=== PATIENT | male | born 1990 | race Caucasian/White ===

== ENCOUNTER 2021-07-23 13:18 | Observation (INO) | payer OTHER, SELFPAY ==
[2021-07-23] VITALS (17 sets, daily range): BP systolic 72–117; BP diastolic 20–78; PULSE 77–103; RESP 16–21; TEMP 36.4–37.1; O2SAT 97–100
--- NOTE | ~2021-07-23 | CT_ITS ---
EXAMINATION: CT abdomen pelvis w con DATE: 07/23/2021 16:16 INDICATION: Abdominal pain. Nausea. Vomiting. TECHNIQUE: Computed tomography (CT) of the abdomen and pelvis was performed with 100 mL Omnipaque 350 intravenous contrast. Automated exposure control and iterative reconstruction technique were employe d. The dose-length product was 611.89 mGy-cm. COMPARISON: CT abdomen 07/15/2006 FINDINGS: The visualized portions of the lung bases demonstrate mild atelectasis. There are surgical clips adjacent to the gastroesophageal junction. No pleural effusion. The heart size is normal. No pe ricardial effusion. The liver, gallbladder, spleen, pancreas, adrenal glands, and right kidney are no rmal. There is a 5 mm cyst in left kidney. There are no dilated loops of bowel. The appendix is lanre l. There are plugs from bilateral inguinal hernia repairs. There are no pathologically enlarged lymph nodes. There is no free intraperitoneal fluid. There is mild thoracolumbar spondylosis. IMPRESSION: 1. No etiology for the patient's symptoms. Reviewed, dictated and finalized at location B. [employer]
--- NOTE | ~2021-07-23 | XR_ITS ---
EXAMINATION: XR chest 1V portable 07/23/2021 15:46 INDICATION: Syncope. Nausea, vomiting and diarrhea. PROCEDURE: AP portable chest COMPARISON: Comparison to multiple prior studies sequentially, with oldest reviewed study dated 08/02. FINDINGS: The lungs are clear. The cardiomediastinal silhouette is within normal limits. There are no pleural effusions. There is no pneumothorax suspected. IMPRESSION: 1: NO ACUTE CARDIOPULMONARY DISEASE. Reviewed, dictated and finalized at location A. LEAD
--- NOTE | ~2021-07-23 | CT_ITS ---
EXAMINATION: CT cervical spine wo con DATE: 07/23/2021 16:15 INDICATION: Syncope TECHNIQUE: Computed tomography (CT) of the cervical spine was performed without intravenous contrast. Automated exposure control and iterative reconstruction technique were employed. The dose-length pro duct was 557.43 mGy-cm. COMPARISON: None FINDINGS: Alignment is normal. Vertebral body and disc heights are normal. No fracture. There is minimal to mil d uncovertebral and facet osteoarthritis at a few levels but which does not result in neural foramina l stenosis. The central canal also appears widely patent. Cervical soft tissues are unremarkable. Vis ualized portions of the airway and bilateral upper lungs are clear. IMPRESSION: 1. Minimal to mild cervical facet and uncovertebral osteoarthritis. No acute osseous abnormality. Reviewed, dictated and finalized at location A. [employer] IMPRESSION: 1. Minimal to mild cervical facet and uncovertebral osteoarthritis. No acute os seous abnormality.
--- NOTE | ~2021-07-23 | CT_ITS ---
EXAMINATION: CT brain wo con DATE: 07/23/2021 16:15 INDICATION: Syncope TECHNIQUE: Computed tomography (CT) of the head was performed without intravenous contrast. Sagittal and coronal reconstructions were performed. The mA was adjusted according to patient size. Iterative reconstruction technique was employed. The dose-length product was 605.33 mGy-cm. COMPARISON: Brain MR dated 07/08/2008 FINDINGS: No acute intracranial hemorrhage, acute infarction or abnormal extra axial fluid collection. Ventricl es are normal and symmetric with normal variant cavum septum vergae. No mass/mass effect. The orbits, paranasal sinuses and mastoid air cells are normal. IMPRESSION: 1. Normal head CT. No acute intracranial process. Reviewed, dictated and finalized at location A. ENT ACCOUNT REPRESENTATIVE
--- NOTE | 2021-07-23 13:48 | ECG_ITS ---
Measurements Intervals [place] Rate: 76 P: 18 MA: 161 QRS: -3 QRSD: 85 T: 14 QT: 337 QTc: 381 Interpretive Statements SINUS RHYTHM NORMAL ECG Electronically Signed On 07-23-2021 15:11:05 HELP DESK ENGINEER by Pasquale Valentine D.O.
[2021-07-23] MEDS: SODIUM CHLORIDE 0.9% IV 1,000 ML 999 ML IV CONT ×3 (13:53→18:56)
[2021-07-23 15:02] LABS: Hematocrit 52.7 % (42.0-52.0); Mean Corpuscular HGB Conc 34.2 g/dl (32-36); Mean Corpuscular Hemoglobin 32.4 pg (26-34); Mean Corpuscular Volume 94.8 fl (80-100); Mean Platelet Volume 11.9 fl (7.4-10.4); Platelet Count Result 221 k/mm3 (150-375); Red Blood Count 5.56 M/mm3 (4.6-6.20); Red Cell Distribution Width 12.1 % (11.5-14.5); White Blood Count 15.1 K/mm3 (4.5-10.0)
[2021-07-23 15:25] LABS: Band Neutrophils Percent 19 % (0-6); Lymphocytes Absolute Manual 0.45 K/mm3 (1.1-4.5); Monocytes Absolute Manual 1.35 K/mm3 (0.1-0.90); Monocytes Percent Manual 9 % (3-9); Neutrophils Absolute Manual 13.28 K/mm3 (1.3-6.7); Neutrophils Percent Manual 69 % (46-73); Total Cells Counted 100
[2021-07-23 15:26] LABS: Platelet Estimate Adequate (Adequate)
--- NOTE | 2021-07-23 15:38 | PC.NURSE ---
PA aware of orthostatic results. Guaiac completed and showed to PA. Pt had diarrhea in bedside commode.
[2021-07-23 15:46] LABS: Alanine Aminotransferase 41 U/L (4-50); Alkaline Phosphatase 76 U/L (38-126); Anion Gap 10 mmol/L (8-16); Aspartate Amino Transferase 35 U/L (17-59); Bilirubin,Total 0.8 mg/dL (0.2-1.3); Blood Urea Nitrogen 17 mg/dL (9-20); Calcium 9.9 mg/dL (8.4-10.2); Carbon Dioxide 26 mmol/L (22-30); Chloride 105 mmol/L (98-107); Estimated CRCL calculation 69 ml/min; Estimated Glomerular Filt Rate 51; Glucose 115 mg/dL (65-110); Potassium 4.8 mmol/L (3.4-5.0); Sodium 141 mmol/L (137-145)
[2021-07-23] MEDS: metroNIDAZOLE 500 MG/ISO 100ML 500 MG/100 ML BAG 100 MG IVPB (15:46)
[2021-07-23 15:56] LABS: Add Urine Microscopic? YES; Appearance Urine Cloudy (Clear); Bacteria Urine Trace /hpf; Bilirubin Urine Negative (Negative); Blood Urine Negative (Negative); Color Urine Amber (Yellow); Glucose Urine UA Negative (Negative); Ketones Urine Negative (Negative); Leukocyte Esterase Ur Negative LEU/UL (Negative); Mucus Urine Few /lpf; Nitrate Urine Negative (Negative); Protein Urine 2+ mg/dL (Negative); RBC Urine 0-2 /hpf (0-2); Specific Grav Ur 1.018 (1.001-1.035); Squamous Epithelial Cell Urine Rare /hpf (Few); Urobilinogen Urine Negative mg/dL (<2.0); WBC Urine 0-3 /hpf
[2021-07-23 16:15] LABS: Amphetamine Screen Urine Negative (Negative); Barbiturate Screen Urine Negative (Negative); Benzodiazepines Screen Urine Negative (Negative); Cannabinoid Screen Urine Positive (Negative); Cocaine Screen Urine Negative (Negative); Methadone Screen Urine Negative (Negative); Opiate Screen Urine Negative (Negative); Phencyclidine Screen Urine Negative (Negative)
--- NOTE | 2021-07-23 17:46 | PC.NURSE ---
clarified with Diara. Pt to receive 3 total liters of fluid. Additional order added.
[2021-07-23] MEDS: PANTOPRAZOLE SODIUM IV 40 MG VIAL IV PUSH (18:56)
--- NOTE | 2021-07-23 19:37 | ED.GENADULT ---
HPI - General Adult General Chief complaint: Syncope Stated complaint: syncope x 2, vomiting Time Seen by Provider: 07/23/21 13:32 Source: patient Mode of arrival: EMS Limitations: no limitations History of Present Illness HPI narrative: Patient is a 30-year-old male presenting with chief complaint of syncopal episode while in the bathroom prior to arrival. Patient reports that he has intermittent episodes of diarrhea which at times leads to dehydration and he has had a syncopal episode in the past due to this 1 other time. Patient reports that he has had bouts with intermittent diarrhea for multiple years. Patient reports that he has had a colonoscopy performed a few months ago in [facility] and it was normal. He states that they evaluated him to see if he had ulcerative colitis like his father but he did not. Patient reports that he has a standing stool culture ordered but when he has these bouts of diarrhea however they have not resulted abnormally in the past. Patient denies any chest pain, shortness of breath. He reports generally he only has diarrhea but this time he also had accompanying vomiting. Patient reports that he had a syncopal episode when he was trying to stand and ambulate. Patient reports that he felt very weak. Patient mother reports that she was there and the patient struck the right side of his forehead. Mother reports that he was patient so she did not know if he had a seizure. Patient reports he does not have a seizure history. She denies tonic-clonic motions. Patient denies noting any blood or mucus in his stools. He denies any stools being black or tarry. Related Data Home Medications Medication Instructions Recorded Confirmed No Home Medications 07/23/21 07/23/21 Allergies Allergy/AdvReac Type Severity Reaction Status Date / Time Penicillins Allergy Unknown Rash Verified 07/23/21 13:45 Review of Systems Review of Systems: CONSTITUTIONAL: Denies fever, chills, or sweats. EYES: Denies visual changes, redness, or discharge. ENT: Denies rhinorrhea, congestion, sore throat, or otalgia. CARDIOVASCULAR: Denies chest pain, palpitations, or edema. RESPIRATORY: Denies cough or dyspnea. GASTROINTESTINAL: Reports vomiting and diarrhea denies abdominal pain, nausea GENITOURINARY: Denies dysuria or hematuria. SKIN: Denies rash or itching. MUSCULOSKELETAL: Denies back pain, joint pain, or myalgia. NEUROLOGIC: Reports syncope denies headache, numbness, dizziness, or weakness. PSYCHIATRIC: Denies anxiety or depression. [facility] Family History Family History (Updated 04/28/14 @ 07:13 by DOCTOR UNKNOWN) Mother Asthma Other Diabetes mellitus Family history of allergic disorder Family history of cardiovascular disease Hypertension Social History Social History Smoking status: Never smoker Alcohol intake: never Exam Narrative: GENERAL: Appears pale, appears to feel ill. HEAD: Normocephalic, atraumatic. EYES: PERRLA and EOMI. NECK: Supple. No adenopathy or masses. No carotid bruits or JVD CHEST: Clear to auscultation. No respiratory distress. No wheezes rales or rhonchi HEART: Regular rate and rhythm. No murmur heard. Normal peripheral pulses. ABDOMEN: Soft, diffuse tenderness, nondistended, normal active bowel sounds. Rectal exam without abnormal findings. Hemoccult positive. EXTREMITIES: Normal range of motion. No edema. SKIN: Warm, dry, no rash. NEURO: No focal deficits. Alert and oriented x3. PSYCH: Normal mood and affect. Course Vital Signs Vital signs: Vital Signs Pulse Rate 85 07/23/21 13:30 Respiratory Rate 19 07/23/21 13:30 Blood Pressure 87/61 L 07/23/21 13:30 Temperature 97.6 F 07/23/21 13:32 Pulse Rate 92 07/23/21 19:03 Respiratory Rate 20 07/23/21 19:03 Blood Pressure 117/58 L 07/23/21 19:03 Pulse Oximetry 97 07/23/21 19:03 Medical Decision Making [facility] Narrative Medical decision making narrative: Patient has receive
[2021-07-23] MEDS: SODIUM CHLORIDE 0.9% IV 1,000 ML 125 ML IV CONT (19:58)
--- NOTE | 2021-07-23 19:59 | PC.NURSE ---
stool sample sent to the lab did not have enough. they are going to do send what they can and we will need to send more of the specimen.
[2021-07-23 20:31] LABS: IFOB Positive Control Positive; Immunochemical Fecal Occult Bl Positive (N)
--- NOTE | 2021-07-23 21:02 | PM.IMHP ---
H&P: HPI History of Present Illness Date/Time: 07/23/21 21:02 Chief Complaint: Syncope Narrative: Patient is a 30-year-old male who presents to the ED with 6 few syncopal episodes earlier today. He states he was doing okay he yesterday when he woke up he was feeling little dizzy and when he went to the bathroom he had explosive diarrhea. He started taking some Gatorade and more fluids however he was still feeling lousy and also had a vomiting episode earlier today. He reports he had a couple of of blackout episodes at home and hence called an ambulance and was brought in here. EMS noted him to be hypotensive and was given fluids. In the ER he was positive for orthostasis. He reports diffuse abdominal pain in periumbilical area. Is feeling better since he has received IV fluids from the ER. He has had multiple bouts of intermittent diarrhea for many years. He reports since he had Chauncey fundoplication done this has been recurrent. 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 He has cut down on his dairy intake which has in fact help some. No fever chills no urinary complaints. Review of Systems Review of Systems: - CONSTITUTIONAL: Denies weight loss, fever and chills. - HEENT: Denies changes in vision and hearing - RESPIRATORY: Denies SOB and cough. - CV: Denies palpitations and CP. - GI: Reports abdominal pain, nausea, vomiting and diarrhea. - : Denies dysuria and urinary frequency. - MSK: Denies myalgia and joint pain. - SKIN: Denies rash and pruritus. - NEUROLOGICAL: Denies headache and syncope. - PSYCHIATRIC: Denies recent changes in mood. Denies anxiety and depression. All systems reviewed & are unremarkable except as noted in HPI and below Constitutional: Constitutional: Reports fatigue and Reports weakness Neurologic: Reports weakness Endocrine: Endocrine: Reports fatigue [facility] Family History Family History (Updated 04/28/14 @ 07:13 by DOCTOR UNKNOWN) Mother Asthma Other Diabetes mellitus Family history of allergic disorder Family history of cardiovascular disease Hypertension Social History Social History Smoking status: Never smoker Alcohol intake: never Meds Home Medications and Allergies Home Medications Medication Instructions Recorded Confirmed Type No Home Medications 07/23/21 07/23/21 History Allergies Allergy/AdvReac Type Severity Reaction Status Date / Time Penicillins Allergy Unknown Rash Verified 07/23/21 13:45 Vital Signs Vital Signs - 24 hr 07/23/21 13:30 07/23/21 13:32 07/23/21 13:45 Temperature 97.6 F Pulse Rate 85 88 83 Respiratory Rate 19 20 18 Blood Pressure 87/61 L 87/61 L 94/56 L Pulse Oximetry 100 99 07/23/21 13:46 07/23/21 15:00 07/23/21 15:16 Temperature Pulse Rate 77 88 87 Respiratory Rate 18 Blood Pressure 101/78 101/58 L Pulse Oximetry 100 07/23/21 15:20 07/23/21 15:21 07/23/21 15:22 Temperature Pulse Rate 84 99 103 H Respiratory Rate Blood Pressure 104/53 L 92/56 L 72/20 L Pulse Oximetry 07/23/21 17:29 07/23/21 17:30 07/23/21 19:03 Temperature Pulse Rate 103 H 92 92 Respiratory Rate 21 H 16 20 Blood Pressure 111/57 L 112/53 L 117/58 L Pulse Oximetry 100 100 97 07/23/21 20:31 07/23/21 20:32 07/23/21 20:33 Temperature 98.8 F Pulse Rate 95 Respiratory Rate 16 Blood Pressure 111/52 L 112/50 L 104/59 L Pulse Oximetry 100 07/23/21 20:37 Temperature 98.8 F Pulse Rate 95 Respiratory Rate 16 Blood Pressure 111/52 L Pulse Oximetry 100 Exam Narrative: GENERAL: Appears comfortable not in acute distress HEAD: Normocephalic, atraumatic. EYES: PERRLA and EOMI. NECK: Supple. No adenopathy or masses. No carotid bruits or JVD CHEST: Clear to auscultation. No respiratory distress. No wheezes rales or rhonchi HEART: Regular rate and rhythm. No murmur heard. Normal peripheral pul
--- NOTE | 2021-07-23 21:19 | ADMGEN ---
This patient, Mathew Lisa, was admitted to 2 Medical Room 249-01. Patient/family oriented to hospital policies and general routines including ID bracelet, bed and alarms, visiting hours, pain management, procedures, bathroom and other care routines, personal items, smoking policy, room service/diet, and visiting hours. Information on how to activate the Rapid Response Team has been discussed. Patient/Family are encouraged to report perceived risks to care and to ask questions if they do not understand what they are told or what they should do.
[2021-07-24] VITALS (8 sets, daily range): BP systolic 112–126; BP diastolic 56–67; PULSE 69–85; RESP 16–20; TEMP 36.4–37; O2SAT 98–100; BMI 27.3
[2021-07-24] MEDS: SODIUM CHLORIDE 0.9% IV 1,000 ML 125 ML IV CONT ×3 (00:30→16:18)
[2021-07-24] MEDS: PANTOPRAZOLE SODIUM IV 40 MG VIAL IV PUSH ×2 (08:13→20:26)
--- NOTE | 2021-07-24 11:57 | WPDGICN ---
Assessment and Plan Assessment and plan (1) Diarrhea: Qualifiers: Diarrhea type: unspecified type Qualified Code(s): R19.7 - Diarrhea, unspecified Code(s): R19.7 - Diarrhea, unspecified Status: Acute Assessment and Plan: patient says that has been having recurrent episodes of diarrhea since hiatal hernia surgery that was complicated with massive bleeding. last few times had to be hydrated in ER, this time with syncope and orthostasis from diarrhea he had recent colonoscopy and already establish with GI, stool sample pending but probably not infectious (C diff negative) will get serology for celiac disease, inflammatory markers also will start amitriptyline to see if will minimize episodes after dehydration is treated, will need follow-up with his GI doctor. I talked to mother and mentioned that if he does not get better probably can be a good idea to have GI evaluation in [facility] like [facility] or even [facility]. (2) Dehydration: Code(s): E86.0 - Dehydration Status: Acute Assessment and Plan: will start questran daily (also advised to try it whenever he has episodes of diarrhea to see if will help) (3) Syncope due to orthostatic hypotension: Code(s): I95.1 - Orthostatic hypotension Status: Acute Assessment and Plan: resolved (4) KELSIE (acute kidney injury): Code(s): N17.9 - Acute kidney failure, unspecified Status: Acute Assessment and Plan: treated, labs in am (5) Occult blood positive stool: Code(s): R19.5 - Other fecal abnormalities Status: Acute Assessment and Plan: non-significant, had recent colonoscopy probably from several episodes of diarrhea (6) History of Chauncey fundoplication: Code(s): Z98.890 - Other specified postprocedural states Status: Acute Assessment and Plan: years ago with complication- wonder if had anything to do with recurrent symptoms GI Consult Note Consult date/time: 07/24/21 11:57 Reason for consult: diarrhea, dehydration with syncope HPI: Mathew Lisa is a 30 year old male that in 2011 was found to have esophagitis with hiatal hernia, finally repaired by laparoscopic [place] [address] Hunt but was complicated with massive mediastinal bleeding that required several blood transfusion in the OR- the source of the bleeding was 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 Patient had uneventful recovery but since he has been dealing with intermittent diarrhea, initially episodes every month and lately more sporadic however last two times he had to be in the ER because dehydration. He notices that will start with burping and chlorine taste then followed by diarrhea. He has seen GI in [place] and had colonoscopy just few months that apparently was unremarkable. This time he came with several episodes of loose stools, lightheadedness and two times passing out briefly. Denies blood in stools or fever, no sick contacts. Blood work in ER consistent with dehydration and hemoconcentration (wbc 15, hb 18, creatinine 1.6) U tox + marijuana. He is feeling better with IV fluids. Mother is at bedside and says that is affecting his life, [place] the [place] and can't tell when episodes will occur. He tried imodium without help. Review of Systems Constitutional: Constitutional: Denies chills Eyes: Eyes: Reports no additional eye complaints ENT: Reports Normal hearing present Cardiovascular: Cardiovascular: Denies chest pain Respiratory: Respiratory: Denies dyspnea Gastrointestinal: Gastrointestinal: Reports diarrhea Genitourinary: Genitourinary: Denies dysuria Musculoskeletal: Musculoskeletal: Denies neck pain Integumentary/Breasts: Skin/Breast: Denies dry skin Neurologic: Comments: syncope Psychiatric: Psychiatric: Reports no additional psychiatric complaints [facility] Surgical History Surgical History (Updated 07/24/21 @ 1
[2021-07-24 12:02] LABS: Hematocrit 43.6 % (42.0-52.0); Hemoglobin 14.5 g/dL (14.0-18.0); Mean Corpuscular HGB Conc 33.3 g/dl (32-36); Mean Corpuscular Hemoglobin 31.9 pg (26-34); Mean Corpuscular Volume 95.8 fl (80-100); Mean Platelet Volume 12.3 fl (7.4-10.4); Platelet Count Result 197 k/mm3 (150-375); Red Blood Count 4.55 M/mm3 (4.6-6.20); Red Cell Distribution Width 12.3 % (11.5-14.5); White Blood Count 6.7 K/mm3 (4.5-10.0)
[2021-07-24 12:22] LABS: Anion Gap 7 mmol/L (8-16); Blood Urea Nitrogen 11 mg/dL (9-20); Calcium 9.1 mg/dL (8.4-10.2); Carbon Dioxide 25 mmol/L (22-30); Chloride 104 mmol/L (98-107); Estimated CRCL calculation 119 ml/min; Estimated Glomerular Filt Rate > 60; Glucose 92 mg/dL (65-110); Potassium 4.3 mmol/L (3.4-5.0); Sodium 136 mmol/L (137-145)
--- NOTE | 2021-07-24 15:35 | PM.IMPN ---
Progress Note: A&P Assessment and Plan (1) Syncope due to orthostatic hypotension: Code(s): I95.1 - Orthostatic hypotension Status: Acute Assessment and Plan: Brief episode upon walking out of bathroom following multiple diarrhea stools. He did not hit his head. Head CT negative for any acute findings, cervical spine CT with mild osteoarthritis and no acute findings. Noted to have 32 point drop in systolic BP upon standing with orthostatics. Likely secondary to dehydration from diarrhea. Repeat orthostatics yesterday evening following rehydration were negative. Repeat orthostatics today. Fall precautions (2) Dehydration: Code(s): E86.0 - Dehydration Status: Acute Assessment and Plan: Secondary to diarrhea, nausea, and vomiting. He has been rehydrated with IV fluids and is now tolerating oral intake with decrease in amount of diarrhea. Continue with gentle IV fluid rehydration until diarrhea slows. Encourage p.o. intake. (3) Diarrhea: Qualifiers: Diarrhea type: unspecified type Qualified Code(s): R19.7 - Diarrhea, unspecified Code(s): R19.7 - Diarrhea, unspecified Status: Acute Assessment and Plan: Presents with multiple episodes of watery brown stool. He has had intermittent diarrhea for several years, he notes since he had a Chauncey fundoplication surgery in 2014. CT abdomen/pelvis showed no acute findings. Stool cultures pending, though infectious etiology seems less likely given lack of fever, chills, other signs/symptoms of acute infection. C. diff negative. Appreciate GI consultation. Inflammatory makers and serology for Celiac disease pending. Also started on Questran per GI. 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 (4) KELSIE (acute kidney injury): Code(s): N17.9 - Acute kidney failure, unspecified Status: Acute Assessment and Plan: Secondary to dehydration. Resolved. Creatinine 0.9 today (5) Occult blood positive stool: Code(s): R19.5 - Other fecal abnormalities Status: Acute Assessment and Plan: Positive on presentation. No findings on recent colonoscopy. May be related to diarrhea. Patient denies melena or hematochezia. Protonix IV 40 mg b.i.d. Slight decline in H&H likely due to dilutional effect from IV fluid rehydration, he is not anemic. Continue to monitor H&H. Subjective Date/time seen: 07/24/21 15:35 Interval history: Date of service: 07/24/2021 Mathew candelario is a 30-year-old male with history of Chauncey fundoplication in 2015 who is seen in follow-up for diarrhea and syncopal episode. He reports history of severe diarrhea episodes intermittently ever since he had his Chauncey fundoplication many years ago. He states that these episodes are preceded by 1 day of belching with a ?chlorine taste in my mouth.? He began having an episode of belching 4 days ago, and then 1 day ago he did have significant amount of liquid stools with associated sweating and lightheadedness. He began drinking Pedialyte to prevent dehydration which caused him to have nausea and vomiting. He became very dehydrated and upon walking back from the bathroom, he felt lightheaded and had an episode of syncope that was witnessed by his mother. He did not hit his head. He has difficulty recalling all the details of the episode. He is doing better today. He reports approximately 4 episodes of stools this morning. His stools are brown in color. He denies melena or hematochezia. He felt a bit dizzy upon walking back from a trip to the bathroom but has not had any episodes of lightheadedness. No nausea or vomiting today. No longer having sweats. He has some abdominal soreness but denies any pain. He is tolerating clear liquids. He has some pain along his left thigh from when he fell, he states this is more sensitive than painful. He denies shor
[2021-07-24] MEDS: AMITRIPTYLINE HCL 25 MG TABLET PO (20:26)
[2021-07-25 03:59] VITALS: BP 114/57; PULSE 67; RESP 20; TEMP 36.3; O2SAT 99
[2021-07-25 05:55] LABS: Hematocrit 40.9 % (42.0-52.0); Hemoglobin 13.9 g/dL (14.0-18.0); Mean Corpuscular Hemoglobin 31.8 pg (26-34); Mean Corpuscular Volume 93.6 fl (80-100); Platelet Count Result 204 k/mm3 (150-375); Red Blood Count 4.37 M/mm3 (4.6-6.20); Red Cell Distribution Width 11.9 % (11.5-14.5); White Blood Count 6.8 K/mm3 (4.5-10.0)
[2021-07-25 06:07] LABS: Anion Gap 9 mmol/L (8-16); Blood Urea Nitrogen 7 mg/dL (9-20); CRP 2.6 mg/dL (<1.0); Carbon Dioxide 26 mmol/L (22-30); Chloride 105 mmol/L (98-107); Estimated CRCL calculation 119 ml/min; Estimated Glomerular Filt Rate > 60; Glucose 97 mg/dL (65-110); Sodium 140 mmol/L (137-145)
[2021-07-25] MEDS: SODIUM CHLORIDE 0.9% IV 1,000 ML 75 ML IV CONT (06:09)
[2021-07-25 07:12] LABS: Erythrocyte Sedimentation Rate 8 mm/hr (0-20)
[2021-07-25] MEDS: PANTOPRAZOLE SODIUM IV 40 MG VIAL IV PUSH (08:44)
--- NOTE | 2021-07-25 08:54 | PM.IMPN ---
Progress Note: A&P Assessment and Plan (1) Syncope due to orthostatic hypotension: Code(s): I95.1 - Orthostatic hypotension Status: Acute Assessment and Plan: Brief episode upon walking out of bathroom following multiple diarrhea stools Head CT negative for any acute findings CS CT with mild osteoarthritis and no acute findings. Noted to have 32 point drop in systolic BP upon standing with orthostatics. Likely secondary to dehydration from diarrhea Repeat orthostatics yesterday evening following rehydration were negative Fall precautions (2) Dehydration: Code(s): E86.0 - Dehydration Status: Acute Assessment and Plan: 2/2 diarrhea, nausea, and vomiting S/p IVF and is now tolerating oral intake Encourage p.o. intake (3) Diarrhea: Qualifiers: Diarrhea type: unspecified type Qualified Code(s): R19.7 - Diarrhea, unspecified Code(s): R19.7 - Diarrhea, unspecified Status: Acute Assessment and Plan: Presented with multiple episodes of watery brown stool S/p Chauncey fundoplication surgery in 2014 CT abdomen/pelvis showed no acute findings Cryptosporidium neg; Giardia EIA neg Remaining stool cultures pending C. 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 Slight decline in H&H suspect dilutional effect from IV fluid rehydration Monitor H&H Additional Plan # history of chronic diarrhea unclear etiology colonoscopy this year reported to be normal. Family history of inflammatory bowel disease in his father. Follow-up with gastroenterology as outpatient basis # DVT prophylaxis SCDs contraindicated prophylaxis pharmacologic due to positive occult blood # full code Subjective Date/time seen: 07/25/21 08:54 Interval history: pt seen this a.m.; labs, vs, diagnostic reports, consult note reviewed; denies any N/V/D or abdominal pain Review of Systems Review of Systems: All systems reviewed & are unremarkable except as noted in HPI and below Exam Const: General: no acute distress, alert and awake Orientation/consciousness: patient oriented x3 HENMT: Head: normocephalic and atraumatic Ears: hearing grossly normal bilaterally and external ears normal Face and sinus: face symmetric Mouth: Yes Normal oral and palatal mucosa present Eyes: EOM: EOMs intact bilaterally Neck: Neck: full ROM, trachea midline and no JVD Resp: Effort & Inspection: normal respiratory effort Auscultation: clear to auscultation bilaterally Cardio: Jugular venous distension: no JVD Rate: regular rate Rhythm: regular rhythm Heart sounds: S1 normal heart sound present and S2 normal heart sound present GI: GI Palp: Yes Soft to palpation Percussion: Yes normal to percussion Auscultation: normal bowel sounds : General: Yes no CVA tenderness Skin: General skin exam: normal color Rashes: no rashes Neuro: General: patient oriented x3 and CN's II-XI intact bilaterally Speech: normal speech Extrem: General: full ROM Psych: Appearance: grossly normal Affect: normal affect Judgement: Good judgement present (Psych) Objective Data Vital Signs Vital Signs: Vital Signs - 24 hr 07/24/21 14:00 07/24/21 16:52 07/24/21 21:26 Temperature 36.4 C 36.6 C 36.6 C Pulse Rate 71 71 77 Respiratory Rate 18 20 20 Blood Pressure 114/60 126/66
[2021-07-25] MEDS: CHOLESTYRAMINE (W/ SUGAR) 4 GM POWD.PACK PO (10:50)
--- NOTE | 2021-07-25 13:37 | WPDGIPROGNO ---
Progress Note: A&P Assessment and Plan (1) Diarrhea: Qualifiers: Diarrhea type: unspecified type Qualified Code(s): R19.7 - Diarrhea, unspecified Code(s): R19.7 - Diarrhea, unspecified Status: Acute Assessment and Plan: he has been dealing with cyclic episodes of diarrhea for which he has is established with another GI doctor will prescribe to take questran only if he has diarrhea also started on elavil at bedtime to see if will help with symptoms celiac serology pending he can go home since he is feeling great and denies any more diarrhea (2) Dehydration: Code(s): E86.0 - Dehydration Status: Acute Assessment and Plan: resolved (3) Syncope due to orthostatic hypotension: Code(s): I95.1 - Orthostatic hypotension Status: Acute Assessment and Plan: resolved (4) History of Chauncey fundoplication: Code(s): Z98.890 - Other specified postprocedural states Status: Acute Subjective Date/time seen: 07/25/21 13:37 Interval history: no more diarrhea, tolerated diet and he is having a great day. He would like to go home. Review of Systems Review of Systems: All systems reviewed & are unremarkable except as noted in HPI and below Exam Const: General: comfortable and no acute distress HENMT: General nose exam: Normal nares present Eyes: General: appearance normal, both eyes and all related structures Neck: Neck: no JVD Resp: Auscultation: clear to auscultation bilaterally Cardio: Rate: regular rate Rhythm: regular rhythm GI: Inspection: non-distended GI Palp: Yes Soft to palpation Skin: General skin exam: normal color Neuro: General: gait normal Speech: normal speech Extrem: General: normal to inspection Psych: Mental Status: mental status grossly normal Objective Data Vital Signs Vital Signs: Vital Signs - 24 hr 07/24/21 14:00 07/24/21 16:52 07/24/21 21:26 Temperature 97.6 F 97.9 F 97.9 F Pulse Rate 71 71 77 Respiratory Rate 18 20 20 Blood Pressure 114/60 126/66 117/62 Pulse Oximetry 98 100 100 07/24/21 21:27 07/24/21 21:32 07/24/21 23:29 Temperature 97.9 F 97.9 F Pulse Rate 73 69 Respiratory Rate 20 20 Blood Pressure 123/63 126/67 Pulse Oximetry 100 100 98 07/25/21 03:59 Temperature 97.4 F L Pulse Rate 67 Respiratory Rate 20 Blood Pressure 114/57 L Pulse Oximetry 99 Intake/Output Intake/Output: Intake & Output 07/22/21 07/23/21 07/24/21 07/25/21 23:59 23:59 23:59 23:59 Intake Total 3100 5630 2140 Balance 3100 5630 2140 Meds/Results Medications: Active Medications Generic Name Dose Route Start Last Admin Trade Name Freq PRN Reason Stop Dose Admin Amitriptyline HCl 25 mg 07/24/21 21:00 07/24/21 20:26 Amitriptyline Hcl 25 Mg Tablet PO 25 mg HS CHANCE Administration Cholestyramine Resin 4 gm 07/25/21 11:00 07/25/21 10:50 Cholestyramine (W/ Sugar) 4 Gm Powd.Pack PO 4 gm QAM@1100 CHANCE Administration Ondansetron HCl 4 mg 07/23/21 18:17 Ondansetron Inj 4 Mg/2 Ml Vial IV PUSH Q4H PRN Nausea Pantoprazole Sodium 40 mg 07/24/21 09:00 07/25/21 08:44 Pantoprazole Sodium Iv 40 Mg Vial IV PUSH 40 mg Q12HR CHANCE Administration Radiology Results: ITS Impressions Chest X-Ray 07/23/21 15:54 IMPRESSION: 1: NO ACUTE CARDIOPULMONARY DISEASE. Abdomen/Pelvis CT 07/23/21 16:17 IMPRESSION: 1. No etiology for the patient's symptoms. Head CT 07/23/21 16:17 IMPRESSION: 1. Normal head CT. No acute intracranial process. Cervical Spine CT 07/23/21 16:18 IMPRESSION: 1. Minimal to mild cervical facet and uncovertebral osteoarthritis. No acute osseous abnormality. Labs Labs: Laboratory Results - last 24 hr 07/25/21 07/25/21 05:29 05:29 WBC 6.8 RBC 4.37 L Hgb 13.9 L Hct 40.9 L MCV 93.6 MCH 31.8 MCHC 34.0 RDW 11.9 Plt Count 204 MPV 12.0 H ESR 8 Sodium 140 Potassium 4.0 C
--- NOTE | 2021-07-25 14:05 | PM.DS ---
DS: Admitting Diagnosis Discharge Date 07/25/2021 Admitting Diagnosis Syncope due to orthostatic hypotension DS: Discharge Diagnosis Discharge Diagnosis (1) Syncope due to orthostatic hypotension: Code(s): I95.1 - Orthostatic hypotension Status: Acute Assessment and Plan: Brief episode upon walking out of bathroom following multiple diarrhea stools Head CT negative for any acute findings CS CT with mild osteoarthritis and no acute findings. Noted to have 32 point drop in systolic BP upon standing with orthostatics. Likely secondary to dehydration from diarrhea Repeat orthostatics yesterday evening following rehydration were negative Fall precautions (2) Dehydration: Code(s): E86.0 - Dehydration Status: Acute Assessment and Plan: 2/2 diarrhea, nausea, and vomiting S/p IVF and is now tolerating oral intake Encourage p.o. intake (3) Diarrhea: Qualifiers: Diarrhea type: unspecified type Qualified Code(s): R19.7 - Diarrhea, unspecified Code(s): R19.7 - Diarrhea, unspecified Status: Acute Assessment and Plan: Presented with multiple episodes of watery brown stool S/p Chauncey fundoplication surgery in 2014 CT abdomen/pelvis showed no acute findings Cryptosporidium neg; Giardia EIA neg Remaining stool cultures pending C. 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 Slight decline in H&H suspect dilutional effect from IV fluid rehydration Monitor H&H DS: Summary Hospital Course Hospital Course: 30-year-old male who presented to the ED with 6 few syncopal episodes earlier today. He reported that he was doing okay the day prior to admission, and when he woke up he was feeling little dizzy and when he went to the bathroom he had explosive diarrhea. He started drinking Gatorade and more fluids however he was still feeling lousy and also had a vomiting episode. He reported he had a couple of of blackout episodes at home and hence called an ambulance and was brought in here. EMS noted him to be hypotensive and was given fluids. In the ER he was positive for orthostasis. He reports diffuse abdominal pain in periumbilical area and improved after he received IV fluids from the ER. He has had multiple bouts of intermittent diarrhea for many years. He reports since he had Chauncey fundoplication done this has been recurrent. 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 and had a colonoscopy few months ago which was normal. He has cut down on his dairy intake which has in fact helped some. The patient is doing better today. He is tolerating a low fiber diet. He denies any nausea, vomiting or diarrhea today. GI has seen the patient and no further workup is required. He is hemodynamically stable and will discharge home today. He has been advised to follow up with gastroenterology outpatient. He has also been advised to follow up on pendig labs with Dr. Beltran. Time Spent with Patient Time attestation: Total time spent providing and/or coordinating discharge services: Time spent: Greater than 30 minutes Exam Const: General: no acute distress, alert and awake Orientation/consciousness: patient oriented x3 HENMT: Head: normocephalic and atraumatic Ears: hearing grossly normal bilaterally and externa
[2021-07-28 19:46] LABS: Tissue Transglutaminase IgG Ab <1.0 U/mL (<15.0)
[2021-07-30 15:54] LABS: Tissue Transglutaminase IgA Ab <1.0 U/mL (<15.0)
== END 2021-07-25 14:30 | disposition home or self-care (01) ==
LOC: ANHED 17:01 → ANH2MED 19:45
PROVIDERS: Internal Medicine Gastroenterology; Nurse Practitioner; Physician Assistant; Admitting Provider Internal Medicine; Emergency Provider Emergency Medicine; Visit Provider Physician Assistant
DX: I95.1 Orthostatic hypotension (principal); E86.0 Dehydration; R19.7 Diarrhea, unspecified; N17.9 Acute kidney failure, unspecified; R19.5 Other fecal abnormalities; Z23 Encounter for immunization; Z98.84 Bariatric surgery status
CPT/HCPCS: 36415; 70450; 71045; 72125; 74177; 80048; 80053; 80307; 81001; 82274; 83516; 83605; 85025; 85027; 85652; 86140; 87015; 87040; 87045; 87177; 87209; 87269; 87272; 87324; 87427; 89055; 90471; 90653; 93005; 96361; 96365; 96366; 96374; 96375; 99285; A9270; C9113; G0008; G0378; J1956; J7030; Q9967